=== PATIENT | female | born 1955 | race Caucasian/White ===

== ENCOUNTER 2019-05-12 07:05 | Day surgery (SDC) | payer MEDICARE, OTHER ==
[~2019-05-12] VITALS: Ht 152.4 cm; Wt 50.6 kg
[2019-05-12 07:45] VITALS: Ht 152.4 cm; Wt 50.6 kg
[2019-05-12] MEDS ORDERED: LOSARTAN (07:57)
[2019-05-12] MEDS ORDERED: ATORVASTATIN (07:57)
[2019-05-12] MEDS ORDERED: ASPIRIN (07:57)
[2019-05-12 07:59] VITALS: BP 150/67; PULSE 60; RESP 16
--- NOTE | 2019-05-12 08:21 | PREAC ---
Date/Time of Note Date/Time of Note DATE: 05/12/19 TIME: 08:21 Anesthesia Eval and Record Evaluation Time Pre-Procedure Interview DATE: 05/12/19 TIME: 08:21 Age 63 Sex female NPO: 8 hrs Preoperative diagnosis screening Planned procedure colonoscopy Past Medical History Past Medical History: Includes Cardio: HTN, Dyslipidemia Endo: Diabetes (prediabetes) Surgery & Anesthesia Issues No known issue Meds Anticoagulation: No Beta Daniel within 24 hr: No Reason Beta Daniel not given: Pt. not on B-Daniel Reported Medications [Atorvastatin] No Conflict Check 05/12/19 [Losartan] No Conflict Check 05/12/19 [Aspirin] No Conflict Check 05/12/19 Meds reviewed: Yes Allergies Coded Allergies: No Known Allergy (Unverified , 05/12/19) Allergies Reviewed: Yes Labs/Studies Labs Reviewed: Reviewed by anesthesiologist test: N/A Pre-procedure Exam Last vitals Vital Signs Date Temp Pulse Resp B/P (MAP) Pulse Ox O2 O2 Flow FiO2 Time Delivery Rate 05/12/19 98.0 60 16 150/67 98 Room Air 07:59 (94) Airway: Adequate mouth opening, Adequate thyromental dist Mallampati: Mallampati II Teeth: Normal Lung: Normal Heart: Normal ASA Physical Status ASA physical status: 2 Emergency: None Planned Anesthetic General/MAC: Mask Planned Pain Management Parenteral pain med Pre-operative Attestations Prior to commencing anesthesia and surgery, the patient was re-evaluated, there was verification of: *The patient's identity *The results of appropriate recent lab work and preoperative vital signs *The above evaluation not changing prior to induction *Anesthetic plan, risk benefits, alternative and complications discussed with patient/family; questions answered; patient/family understands, accepts and wishes to proceed. SHELBY GENTILE MD May 12, 2019 08:21
[2019-05-12] MEDS ORDERED: PROPOFOL 20 ML ONE ×2 (08:29)
[2019-05-12] MEDS ORDERED: LIDOCAINE 2% (SDV) 5 ML INJ ONE (08:29)
[2019-05-12] MEDS ORDERED: ONDANSETRON 4 MG INJ IV PRN (08:30)
--- NOTE | 2019-05-12 09:07 | PAC ---
Date/Time of Note Date/Time of Note DATE: 05/12/19 TIME: 09:06 Post-Anesthesia Notes Post-Anesthesia Note Last documented vital signs Vital Signs Date Temp Pulse Resp B/P (MAP) Pulse Ox O2 O2 Flow FiO2 Time Delivery Rate 05/12/19 98.0 60 16 150/67 98 Room Air 07:59 (94) Activity: WNL Respiratory function: WNL Cardiovascular function: WNL Mental status: Baseline Pain reasonably controlled: Yes Hydration appropriate: Yes Nausea/Vomiting absent: Yes Comments BP: 101/58 HR: 60 RR: 15 T: 98 SaO2: 99 SHELBY GENTILE MD May 12, 2019 09:07
[2019-05-12 09:26] VITALS: BP 112/56; RESP 16
== END 2019-05-12 11:00 | disposition home or self-care (01) ==
LOC: GIL 07:05
PROVIDERS: ATTEND Internal Medicine Gastroenterology
DX: Z12.11 Encounter for screening for malignant neoplasm of colon (principal); K63.5 Polyp of colon; K57.30 Diverticulosis of large intestine without perforation or abscess without bleeding; K64.8 Other hemorrhoids; I10 Essential (primary) hypertension; E78.5 Hyperlipidemia, unspecified
CPT/HCPCS: 88305